=== PATIENT | female | born 2000 | race Hispanic/Latino ===

== ENCOUNTER 2020-10-07 03:02 | Inpatient (IN) | payer OTHER ==
--- NOTE | 2020-10-07 03:38 | NUR ---
[facility] RAPID COVID TEST DONE PER DR OCHOA. COVID TEST COLLECTED FROM BOTH NARES. LEFT SIDE HAD OBSTRUCTION. RIGHT SIDE WAS GOOD. PT TOLERATED WELL.
--- NOTE | 2020-10-07 10:46 | PR ---
[facility] [address] [place], [place] [address] Signed Progress Notes IP Datetime Report Generated by ZENON: 10/07/2020 10:46 PROGRESS NOTES: [id number] Impression: Arrest of Dilatation/Descent; Reassuring Heart Rate Procedures: Sterile Vag Exam Plan: Augmentation VITAL SIGNS: [id number] Vital Signs: Reviewed; Within Normal Limits EXAM: [id number] Dilatation: 3.0 Effacement: 80 Station: -3 Contractions: q 3 to 5 min MEMBRANES: [id number] Amniotic Fluid Color: Clear Comments: She is getting more uncomfortable but there has been no cervical change since her admit. She has been ruptured since midnight and we do need to move towards delivery. I think her contractions are inadequate and will begin pit augment. Discussed with pt and she is amenable to this. FETUS A: [id number] FHR Baseline: 130 Variability: Moderate 6-25bpm Accelerations: 15X15 Decelerations: None FHR Category: Category I Presentation: Vertex Comments on Fetus A: No evidence of metabolic acidosis FETUS B: [id number] Signing Physician: Donna Meléndez MD Copies: ~ *Electronically Signed* 10/07/20 1046 DONNA MELÉNDEZ MD PATIENT NAME: GIOVANI ASTUDILLO PROGRESS NOTE DATE OF : 98 PHYSICIAN: DONNA MELÉNDEZ MD RPT #: [id number] REPORT IS CONFIDENTIAL AND NOT TO BE RELEASED WITHOUT AUTHORIZATION
--- NOTE | 2020-10-07 13:06 | PR ---
[facility] [address] [facility] [place] [place] [address] Signed Progress Notes IP Datetime Report Generated by CPGeorge: 10/07/2020 13:05 PROGRESS NOTES: [id number] Impression: Arrest of Dilatation/Descent; Reassuring Heart Rate Other Impressions: slow progress Procedures: Sterile Vag Exam Plan: Continue Present Management VITAL SIGNS: [id number] Vital Signs: Reviewed; Within Normal Limits EXAM: [id number] Dilatation: 4.0 Effacement: 70 Station: -3 Contractions: q 3 to 5 min MEMBRANES: [id number] Amniotic Fluid Color: Clear Comments: Slow progress. I still feel contractions are inadequate. FETUS A: [id number] FHR Baseline: 130 Variability: Moderate 6-25bpm Accelerations: 15X15 Decelerations: None FHR Category: Category I Presentation: Vertex Comments on Fetus A: No evidence of metabolic acidosis FETUS B: [id number] Signing Physician: Donna Meléndez MD Copies: ~ *Electronically Signed* 10/07/20 1305 DONNA MELÉNDEZ MD PATIENT NAME: GIOVANI ASTUDILLO PROGRESS NOTE DATE OF : 98 PHYSICIAN: DONNA MELÉNDEZ MD RPT #: [id number] REPORT IS CONFIDENTIAL AND NOT TO BE RELEASED WITHOUT AUTHORIZATION
--- NOTE | 2020-10-07 15:31 | PR ---
[facility] [address] [facility] [place] [place] [address] Signed Progress Notes IP Datetime Report Generated by CPN: 10/07/2020 15:31 PROGRESS NOTES: [id number] Impression: Normal Progression of Labor Other Impressions: slow progress Procedures: Artificial ROM; Intrauterine Pressure Catheter; Scalp Electrode Plan: Continue Present Management VITAL SIGNS: [id number] Vital Signs: Reviewed; Within Normal Limits EXAM: [id number] Dilatation: 5.0 Effacement: 70 Station: -3 Contractions: q 3 to 5 min MEMBRANES: [id number] Amniotic Fluid Color: Clear Comments: Some progress but pt still very comfortable. Hopefully, AROM of forebag with placement of IUPC and FSE will allow for stronger contractions with pitocin. FETUS A: [id number] FHR Baseline: 130 Variability: Moderate 6-25bpm Accelerations: 15X15 Decelerations: None FHR Category: Category I Presentation: Vertex Comments on Fetus A: No evidence of metabolic acidosis FETUS B: [id number] Signing Physician: Donna Meléndez MD Copies: ~ *Electronically Signed* 10/07/20 1531 DONNA MELÉNDEZ MD PATIENT NAME: GIOVANI ASTUDILLO PROGRESS NOTE DATE OF : 98 PHYSICIAN: DONNA MELÉNDEZ MD RPT #: [id number] REPORT IS CONFIDENTIAL AND NOT TO BE RELEASED WITHOUT AUTHORIZATION
--- NOTE | 2020-10-07 17:01 | PR ---
[facility] [address] [place], [place] [address] Signed Progress Notes IP Datetime Report Generated by CPN: 10/07/2020 17:01 PROGRESS NOTES: [id number] Impression: Normal Progression of Labor Other Impressions: slow progress Procedures: Epidural Placement Plan: Continue Present Management Other Plans: pit off for now VITAL SIGNS: [id number] Vital Signs: Reviewed; Within Normal Limits EXAM: [id number] Dilatation: 6.0 Effacement: 80 Station: -2 Contractions: q 3 to 5 min MEMBRANES: [id number] Amniotic Fluid Color: Clear ROM Note: Dr. Meléndez AROMs forebag with clr fluid noted Comments: Uncomfortable and progressing now. Variables with contractions and pit now off. I do believe there is good reserve with the variability and the accel. Will place epidural and probably restart pit at the beginning if needed. FETUS A: [id number] FHR Baseline: 130 Variability: Moderate 6-25bpm Accelerations: 15X15 Decelerations: None FHR Category: Category I Presentation: Vertex Comments on Fetus A: No evidence of metabolic acidosis FETUS B: [id number] Signing Physician: Donna Meléndez MD Copies: ~ *Electronically Signed* 10/07/20 1803 DONNA MELÉNDEZ MD PATIENT NAME: GIOVANI ASTUDILLO PROGRESS NOTE DATE OF : 98 PHYSICIAN: DONNA MELÉNDEZ MD RPT #: [id number] REPORT IS CONFIDENTIAL AND NOT TO BE RELEASED WITHOUT AUTHORIZATION
--- NOTE | 2020-10-07 17:23 | PR ---
[facility] [address] [place], [place] [address] Signed Progress Notes IP Datetime Report Generated by ZENON: 10/07/2020 17:23 PROGRESS NOTES: [id number] Impression: Normal Progression of Labor; Reassuring Heart Rate Other Impressions: slow progress Procedures: Sterile Vag Exam Plan: Continue Present Management Other Plans: restart pitocin VITAL SIGNS: [id number] Vital Signs: Reviewed; Within Normal Limits EXAM: [id number] Dilatation: 7.0 Effacement: 80 Station: -2 Contractions: q 3 to 5 min MEMBRANES: [id number] Amniotic Fluid Color: Clear ROM Note: Dr. Meléndez AROMs forebag with clr fluid noted Comments: Comfortable after epidural. Pit off after variables earlier but now status is good with accels and no decels. Her contraction pattern reveals poor contraction quality. Will restart pit at the beginning and continue close observation. FETUS A: [id number] FHR Baseline: 130 Variability: Moderate 6-25bpm Accelerations: 15X15 Decelerations: None FHR Category: Category I Presentation: Vertex Comments on Fetus A: No evidence of metabolic acidosis FETUS B: [id number] Signing Physician: Donna Meléndez MD Copies: ~ *Electronically Signed* 10/07/20 1723 DONNA MELÉNDEZ MD PATIENT NAME: GIOVANI ASTUDILLO PROGRESS NOTE DATE OF : 98 PHYSICIAN: DONNA MELÉNDEZ MD RPT #: [id number] REPORT IS CONFIDENTIAL AND NOT TO BE RELEASED WITHOUT AUTHORIZATION
--- NOTE | 2020-10-08 12:19 | PR ---
[facility] [address] [place], [place] [address] Signed PP Progress Notes Datetime Report Generated by ZENON: 10/08/2020 12:19 SUBJECTIVE: [id number] Pain: Within Normal Limits Vital Signs: [id number] Vital Signs: Reviewed; Within Normal Limits Cardiovascular: Not Done Respiratory: Not Done Abdomen/Uterus: Abnormal Lochia: Normal Vulva/Perineum: Abnormal Breasts: Not Done CVA Tenderness: Not Done Extremities: Normal Incision: Not Applicable Progress: Abnormal Exam Comments: Fundus firm, NT @ U-1. Mild perineal edema. H/H 10.4/31, WBC 11.7, plat 129k IMPRESSION/PLAN/PROCEDURES: [id number] Impression: Normal Progression; Difficulties Plan: Consult; Discharge Procedures: None Progress Notes: Doing well except for breast feeding. She is interested in a consult. She does wish discharge this pm though she understands I have no control over the baby's discharge. Signing Physician: Donna Meléndez MD Copies: ~ *Electronically Signed* 10/08/20 1219 DONNA MELÉNDEZ MD PATIENT NAME: GIOVANI ASTUDILLO PROGRESS NOTE DATE OF : 98 PHYSICIAN: DONNA MELÉNDEZ MD RPT #: [id number] REPORT IS CONFIDENTIAL AND NOT TO BE RELEASED WITHOUT AUTHORIZATION
== END 2020-10-08 22:00 | disposition home or self-care (01) | DRG 807 ==
LOC: FBCO 03:02 → FBC 03:30
PROVIDERS: ADMIT Obstetrics & Gynecology; ATTEND Obstetrics & Gynecology
PROC: 10E0XZZ Delivery of Products of Conception, External Approach (ICD-10-PCS; principal; 2020-10-07)
PROC: 0KQM0ZZ Repair Perineum Muscle, Open Approach (ICD-10-PCS; 2020-10-07)
PROC: 10907ZC Drainage of Amniotic Fluid, Therapeutic from Products of Conception, Via Natural or Artificial Opening (ICD-10-PCS; 2020-10-07)
PROC: 10H07YZ Insertion of Other Device into Products of Conception, Via Natural or Artificial Opening (ICD-10-PCS; 2020-10-07)
PROC: 00HU33Z Insertion of Infusion Device into Spinal Canal, Percutaneous Approach (ICD-10-PCS; 2020-10-07)
PROC: 3E0R3BZ Introduction of Anesthetic Agent into Spinal Canal, Percutaneous Approach (ICD-10-PCS; 2020-10-07)
DX: O42.92 Full-term premature rupture of membranes, unspecified as to length of time between rupture and onset of labor (principal); Z37.0 Single live birth; Z3A.39 39 weeks gestation of pregnancy; O66.0 Obstructed labor due to shoulder dystocia; Z20.822 Contact with and (suspected) exposure to COVID-19; O62.1 Secondary uterine inertia; O69.1XX0 Labor and delivery complicated by cord around neck, with compression, not applicable or unspecified; O70.1 Second degree perineal laceration during delivery; O89.4 Spinal and epidural anesthesia-induced headache during the puerperium
CPT/HCPCS: 01960; 36415; 85027; A9270; C9803; J2590; J2795; J3010; J7121; U0003

== ENCOUNTER 2024-05-08 12:14 | Emergency (ER) | payer OTHER ==
[~2024-05-08] VITALS: Ht 157.5 cm; Wt 66.8 kg
--- NOTE | ~2024-05-08 | EKG ---
[facility] [address] [facility], [place] [address] Draft EKG completed, results pending confirmation PATIENT NAME: GIOVANI CUETO Electrocardiogram DATE OF : [birth year] PHYSICIAN: PRELIMINARY REPORT #: [id number] REPORT IS CONFIDENTIAL AND NOT TO BE RELEASED WITHOUT AUTHORIZATION
[2024-05-08 13:08] VITALS: BP 00/00
== END 2024-05-08 13:08 | disposition left against medical advice (07) ==
LOC: ED 12:14
DX: Z53.21 Procedure and treatment not carried out due to patient leaving prior to being seen by health care provider (principal)
CPT/HCPCS: 93005; 93010